=== PATIENT | female | born 1995 | race Caucasian/White ===

== ENCOUNTER 2018-05-07 23:57 | Inpatient (IN) | payer OTHER ==
[~2018-05-07] VITALS: Ht 157.5 cm; Wt 49.9 kg
[2018-05-14] MEDS ORDERED: MEDROLPACK PO (16:36)
[2018-05-14] MEDS ORDERED: PROVENTIL HFA6.7 GM IH (16:36)
== END 2018-05-14 16:54 | disposition home or self-care (01) | DRG 202 ==
LOC: ER 23:57 → MEDI 05-08 09:41
PROC: 3E0F7GC Introduction of Other Therapeutic Substance into Respiratory Tract, Via Natural or Artificial Opening (ICD-10-PCS; principal; 2018-05-08)
PROC: 4A033R1 Measurement of Arterial Saturation, Peripheral, Percutaneous Approach (ICD-10-PCS; 2018-05-08)
PROC: BB24ZZZ Computerized Tomography (CT Scan) of Bilateral Lungs (ICD-10-PCS; 2018-05-09)
DX: J20.9 Acute bronchitis, unspecified (principal); J15.7 Pneumonia due to Mycoplasma pneumoniae; J45.22 Mild intermittent asthma with status asthmaticus

== ENCOUNTER 2025-06-02 09:53 | Emergency (ER) | payer OTHER ==
[~2025-06-02] VITALS: Ht 154.9 cm; Wt 59.0 kg
[~2025-06-02 09:53] MED LIST: MEDROLPACK PO; PROVENTIL HFA6.7 GM IH
[2025-06-02] MEDS ORDERED: METHYLPREDNISOLONE SOD SUCC 125 MG VIAL IV ONE (10:30)
[2025-06-02] MEDS ORDERED: LEVALBUTEROL HCL 1.25 MG/3 ML SOLUTION IH SCH (10:30)
[2025-06-02] MEDS ORDERED: IPRATROPIUM BROMIDE 0.5 MG/2.5 ML AMPUL.NEB IH SCH (10:30)
[2025-06-02] MEDS ORDERED: LEVALBUTEROL HCL 1.25 MG/3 ML SOLUTION IH ONE (10:55)
[2025-06-02] MEDS ORDERED: IPRATROPIUM BROMIDE 0.5 MG/2.5 ML AMPUL.NEB IH ONE (10:55)
[2025-06-02] MEDS ORDERED: METHYLPREDNISOLONE SOD SUCC 40 MG VIAL ONE (11:22)
[2025-06-02 12:15] LABS: BASO % 0.9 % (0.1-1.2); EOS # 0.58 (0.04-0.54); EOS % 6.4 % (0.7-7.0); LYMPH # 2.54 (1.18-3.74); LYMPH % 27.9 % (19.3-53.1); MEAN PLATELET VOLUME 11.30 fl (9.4-12.4); MONO # 1.04 (0.24-0.82); MONO % 11.4 % (4.7-12.5); NEUT # 4.85 (1.56-6.13); NEUT % 53.2 % (34.0-71.1); RED CELL DISTRIBUTION WIDTH 12.0 % (11.6-14.4)
[2025-06-02 14:47] LABS: COVID-19 AG NEGATIVE (NEGATIVE)
== END 2025-06-02 14:59 | disposition home or self-care (01) ==
LOC: ER 09:54
PROVIDERS: General Practice
DX: J45.909 Unspecified asthma, uncomplicated (principal); Z20.822 Contact with and (suspected) exposure to COVID-19